=== PATIENT | male | born 1975 | race Native Hawaiian/Other Pacific Islander ===

== ENCOUNTER 2023-11-23 10:11 | Observation (INO) | payer SELFPAY ==
--- NOTE | 2023-11-23 11:07 | XR ---
EXAMINATION TYPE: XR chest 2V DATE OF EXAM: 11/23/2023 COMPARISON: NONE TECHNIQUE: PA and lateral views submitted. HISTORY: Chest pain FINDINGS: The lungs are clear and there is no pneumothorax, pleural effusion, or focal pneumonia. Heart size normal and no overt failure. Ectasia of the aorta. Osseous structures intact.. IMPRESSION: 1. No acute process.
[2023-11-23 11:17] LABS: Basophils % (A) 0 %; Eosinophils # (A) 0.1 k/uL (0-0.7); Eosinophils % (A) 1 %; HCT 47.8 % (39.0-53.0); HGB 16.5 gm/dL (13.0-17.5); Lymphocytes # (A) 1.5 k/uL (1.0-4.8); Lymphocytes % (A) 15 %; MCH 28.5 pg (25.0-35.0); MCHC 34.4 g/dL (31.0-37.0); MCV 82.8 fL (80.0-100.0); Mean Platelet Volume 7.1; Monocytes # (A) 0.3 k/uL (0-1.0); Monocytes % (A) 4 %; Neutrophils # (A) 7.6 k/uL (1.3-7.7); Neutrophils % (A) 79 %; Platelet Count 274 k/uL (150-450); RBC 5.77 m/uL (4.30-5.90); RDW 14.3 % (11.5-15.5); WBC 9.6 k/uL (3.8-10.6)
[2023-11-23 11:32] LABS: ALT 27 U/L (4-49); AST 25 U/L (17-59); African American GFR (CKD) >90 (>60 ml/min/1.73 sqM); Albumin 4.7 g/dL (3.5-5.0); Alkaline Phosphatase 72 U/L (38-126); Anion Gap 7 mmol/L; Blood Urea Nitrogen 12 mg/dL (9-20); Calcium 10.5 mg/dL (8.4-10.2); Carbon Dioxide 28 mmol/L (22-30); Chloride 103 mmol/L (98-107); Glucose 114 mg/dL (74-99); Lipase 67 U/L (23-300); Non-African American GFR(CKD) >90 (>60 ml/min/1.73 sqM); Potassium 4.5 mmol/L (3.5-5.1); Sodium 138 mmol/L (137-145); Total Bilirubin 1.1 mg/dL (0.2-1.3); Total Protein 7.4 g/dL (6.3-8.2)
[2023-11-23 11:41] LABS: NT-Pro-B-Type Natriuretic Pept 53 pg/mL
[2023-11-23] MEDS: NITROGLYCERIN SL TABS 0.4 MG TAB SUBLINGUAL STA (11:48)
[2023-11-23] MEDS: PANTOPRAZOLE 40 MG/10 ML VIAL IVP STA (11:48)
[2023-11-23 11:55] LABS: INR 0.9 (<1.2); Partial Thromboplastin Time 25.5 sec (22.0-30.0); Prothrombin Time 10.5 sec (10.0-12.5)
--- NOTE | 2023-11-23 12:35 | ED ---
Chest Pain HPI - General Chief Complaint: Chest Pain Stated Complaint: chest pain Time Seen by Provider: 11/23/23 10:17 Source: patient Mode of arrival: ambulatory Limitations: no limitations - History of Present Illness Initial Comments: 48-year-old male with past medical history of hypertension who presents emergency department reporting chest pain. States it started at 4 AM this morning. He describes it as a pressure sensation in the substernal region which has been constant. Patient does have some associated shortness of breath. He denies previous cardiac history. Does have a history of hypertension. States that he is supposed to take lisinopril 5 mg but has not been taking it because he has been unable to get into his doctor for a refill. States that he works out of town. He did not attempt to take anything for his chest pain. Denies fevers, chills or cough. Admits to nausea with 2 episodes of vomiting. No other alleviating, precipitating or modifying factors - Related Data Previous Rx's Medication Instructions Recorded lisinopriL [Zestril] 10 mg PO DAILY 30 Days #30 tab 11/24/23 Allergies Allergy/AdvReac Type Severity Reaction Status Date / Time No Known Allergies Allergy Verified 11/23/23 13:25 Review of Systems ROS Statement: Those systems with pertinent positive or pertinent negative responses have been documented in the HPI. ROS Other: All systems not noted in ROS Statement are negative. Past Medical History Past Medical History: Hypertension History of Any Multi-Drug Resistant Organisms: None Reported Past Surgical History: No Surgical Hx Reported Past Psychological History: No Psychological Hx Reported Smoking Status: Vaper Past Alcohol Use History: Occasional Past Drug Use History: None Reported General Exam Limitations: no limitations General appearance: alert, in no apparent distress Head exam: Present: atraumatic, normocephalic, normal inspection Eye exam: Present: normal appearance, PERRL, EOMI. Absent: scleral icterus, conjunctival injection, periorbital swelling ENT exam: Present: normal exam, mucous membranes moist Neck exam: Present: normal inspection. Absent: tenderness, meningismus, lymphadenopathy Respiratory exam: Present: normal lung sounds bilaterally. Absent: respiratory distress, wheezes, rales, rhonchi, stridor Cardiovascular Exam: Present: regular rate, normal rhythm, normal heart sounds. Absent: systolic murmur, diastolic murmur, rubs, gallop, clicks GI/Abdominal exam: Present: soft, normal bowel sounds. Absent: distended, tenderness, guarding, rebound, rigid Extremities exam: Present: normal inspection, full ROM, normal capillary refill. Absent: tenderness, pedal edema, joint swelling, calf tenderness Back exam: Present: normal inspection Neurological exam: Present: alert, oriented X3, CN II-XII intact Psychiatric exam: Present: normal affect, normal mood Skin exam: Present: warm, dry, intact, normal color. Absent: rash Course Vital Signs 11/23/23 11/23/23 11/23/23 10:13 11:46 12:14 Temperature 97.7 F 98.1 F Pulse Rate 81 66 60 Pulse Rate [ Pulse Oximetery ] Respiratory 20 18 18 Rate Blood Pressure 232/149 215/129 190/116 Blood Pressure [Left Arm] O2 Sat by Pulse 100 99 97 Oximetry 11/23/23 11/23/23 11/23/23 13:57 15:40 16:10 Temperature Pulse Rate 77 67 Pulse Rate [ Pulse Oximetery ] Respiratory 18 18 Rate Blood Pressure 187/121 179/112 183/122 Blood Pressure [Left Arm] O2 Sat by Pulse 98 99 Oximetry 11/23/23 11/23/23 11/23/23 18:07 19:38 20:00 Temperature 98.2 F 97.6 F Pulse Rate 83 77 Pulse Rate [ 71 Pulse Oximetery ] Respiratory 18 18 16 Rate Blood Pressure 160/88 161/107 Blood Pressure 165/111 [Left Arm] O2 Sat by Pulse 98 98 99 Oximetry Chest Pain MDM - MDM Was pt. sent in by a medical professional or institution (, PA, LINUX CONSULTANT, urgent care, hospital, or snf...) When possible be specific @ -No Did you speak to anyone other than the patient for history (EMS, parent, family, police, friend...)? What history was obtained from this source @ -No Did you review nursing and triage notes (agree or disagree)? Why? @ -I reviewed and agree with nursing and triage notes Were old charts reviewed (outside hosp., previous admission, EMS record, old EKG, old radiological studies, urgent care reports/EKG's, snf records)? Report findings @ -No old charts were reviewed Differential Diagnosis (chest pain, altered mental status, abdominal pain women, abdominal pain men, vaginal bleeding, weakness, fever, dyspnea, syncope, headache, dizziness, GI bleed, back pain, seizure, CVA, palpatations, mental health, musculoskeletal)? @ -Differential Chest Pain: Stable Angina, Unstable Angina, STEMI, NSTEMI Aortic Dissection, Pneumothorax, Musculoskeletal, Esophageal Spasm GERD, Cholecystitis, Pancreatitis, Zoster, this is not meant to be an all-inclusive list. EKG interpreted by me (3pts min.). @ -Yes and demonstrates sinus rhythm with a rate of 80. NC interval 164. QRS 114. QTc of 404. No acute ST segment elevations or depressions. Q wave in lead III X-rays interpreted by me (1pt min.). @ -Yes and demonstrates no acute process CT interpreted by me (1pt min.). @ -None done U/S interpreted by me (1pt. min.). @ -None done What testing was considered but not performed or refused? (CT, X-rays, U/S, labs)? Why? @ -None What meds were considered but not given or refused? Why? @ -None Did you discuss the management of the patient with other professionals (professionals i.e. , PA, LINUX CONSULTANT, lab, RT, psych nurse, social sciences chair, documentation clerk, teacher, driver license reviewing officer, case briefer)? Give summary @ -Spoke with Dr. Peraza Was smoking cessation discussed for >3mins.? @ -No Was critical care preformed (if so, how long)? @ -No Were there social determinants of health that impacted care today? How? (Homelessness, low income, unemployed, alcoholism, drug addiction, transportation, low edu. Level, literacy, decrease access to med. care, [facility], rehab)? @ -No Was there de-escalation of care discussed even if they declined (Discuss DNR or withdrawal of care, Hospice)? DNR status @ -No What co-morbidities impacted this encounter? (DM, HTN, Smoking, COPD, CAD, Cancer, CVA, ARF, Chemo, Hep., AIDS, mental health diagnosis, sleep apnea, morbid obesity)? @ -Hypertension Was patient admitted / discharged? Hospital course, mention meds given and route, prescriptions, significant lab abnormalities, going to OR and other per tinent info. @ -Upon arrival patient seen and evaluated in hallway 26. Thorough history and physical exam was performed. Patient is markedly hypertensive. He is given his dose of home lisinopril. Laboratory studies are conducted. Chest x-ray was performed. Patient does have several risk factors with a moderate heart score and therefore I did recommend admission. Spoke with Dr. Peraza who agreed to accept the patient. Cardiology will be placed on consult Undiagnosed new problem with uncertain prognosis? @ -No Drug Therapy requiring intensive monitoring for toxicity (Heparin, Nitro, In sulin, Cardizem)? @ -No Were any procedures done? @ -No Diagnosis/symptom? @ -Acute chest pain, accelerated hypertension Acute, or Chronic, or Acute on Chronic? @ -Acute Uncomplicated (without systemic symptoms) or Complicated (systemic symptoms)? @ -Complicated Side effects of treatment? @ -No Exacerbation, Progression, or Severe Exacerbation? @ -No Poses a threat to life or bodily function? How? (Chest pain, [place], ND, pneumonia, PE, COPD, DKA, ARF, appy, cholecystitis, CVA, Diverticulitis, Homicidal, Suicidal, threat to staff... and all critical care pts) @ -Yes as patient has significantly elevated high blood pressure with chest pain Disposition Clinical Impression: Chest pain, Accelerated hypertension Disposition: ADMITTED IP TO THIS [facility] Condition: Stable Is patient prescribed a controlled substance at d/c from ED?: No Time of Disposition: 13:14 Decision to Admit Reason: Admit from EC Decision Date: 11/23/23 Decision Time: 13:14
[2023-11-23] MEDS ORDERED: NALOXONE 0.4 MG/ML 1 ML VIAL IV PRN (13:15)
[2023-11-23] MEDS: hydrALAZINE HCL 20 MG/ML 1 ML VIAL IVP PRN ×2 (15:44→21:49)
[2023-11-24] MEDS: lisinopriL 10 MG TAB PO SCH (09:01)
[2023-11-24 10:57] LABS: Basophils # (A) 0.04 X 10*3/uL (0.00-0.10); Basophils % (A) 0.4 %; Eosinophils # (A) 0.36 X 10*3/uL (0.04-0.35); Eosinophils % (A) 3.9 %; HCT 42.4 % (39.6-50.0); HGB 14.7 g/dL (13.0-17.0); Lymphocytes # (A) 2.03 X 10*3/uL (0.90-5.00); Lymphocytes % (A) 21.8 %; MCH 27.9 pg (27.0-32.0); MCHC 34.7 g/dL (32.0-37.0); MCV 80.6 FL (80.0-97.0); Monocytes # (A) 0.81 X 10*3/uL (0.20-1.00); Monocytes % (A) 8.7 %; NRBC Per 100 WBC 0 X 10*3/uL (0.00-0.01); Neutrophils # (A) 6.05 X 10*3/uL (1.80-7.70); Neutrophils % (A) 64.8 %; Platelet Count 256 X 10*3/uL (140-440); RBC 5.26 X 10*6/uL (4.40-5.60); RDW 14.1 % (11.5-14.5); WBC 9.33 X 10*3/uL (4.50-10.00)
[2023-11-24 11:17] LABS: BUN/Creat Ratio 12.44 Ratio (12.00-20.00); Blood Urea Nitrogen 11.2 mg/dL (9.0-27.0); Carbon Dioxide 22.8 mmol/L (21.6-31.8); Chloride 105 mmol/L (96-109); Glucose 110 mg/dL (70-110); Potassium 4.1 mmol/L (3.5-5.5); Sodium 138 mmol/L (135-145)
--- NOTE | 2023-11-24 12:37 | P.CRDCN ---
History of Present Illness History of present illness: HISTORY OF PRESENT ILLNESS: This is a 48-year-old male with a past medical history significant for hypertension. Patient does not follow with a industrial hygenist. We have been asked to see the patient in consultation for chest pain and hypertension. Patient examined at the bedside. Patient states two nights ago he had chest pain that wouldnt go away. He thought initially it was GERD but came to the hospital when it didnt resolve. He states the pain resolved around 7pm last night. Patient's blood pressures were extremity elevated upon admission to the hospital with a reading of 232/149. The patient states he takes lisinopril on an outpatient basis however he has not been taking this as he ran out of his medication. Most recent blood pressure 126/89. Reports daily vaping. Reports occasional alcohol use. Denies drug use. DIAGNOSTICS: - EKG reveals sinus mechanism with no signs of acute ischemia. - Chest xray negative for acute process - Laboratory data: WBC 9.6. Hemoglobin 16.5. Platelet count 274. Sodium 138. Potassium 4.5. BUN 12. Creatinine 0.83. Magnesium 2.0 troponin negative x 3. proBNP 53. - Current home cardiac medications include none. - No previous echocardiogram, stress test, or cardiac catheterization available in EMR for review REVIEW OF SYSTEMS: At the time of my exam: CONSTITUTIONAL: Denies fever or chills. HEENT: Denies blurred vision, vision changes, or eye pain. Denies hemoptysis CARDIOVASCULAR: Denies chest pain. Denies orthopnea. Denies PND. Denies palpitations RESPIRATORY: Denies shortness of breath. GASTROINTESTINAL: Denies abdominal pain. Denies nausea or vomiting. HEMATOLOGIC: Denies bleeding disorders. GENITOURINARY: Denies any blood in urine. SKIN: Denies pruitis. Denies rash. PHYSICAL EXAM: VITAL SIGNS: Reviewed. GENERAL: Well-developed in no acute distress. HEENT: Head is normocephalic. Pupils are equal, round. Sclerae anicteric. Mucous membranes of the mouth are moist. Neck supple. No JVD or thyromegaly LUNGS: Respirations even and unlabored. Lungs essentially clear to auscultation bilaterally. HEART: Regular rate and rhythm. S1 and S2 heard. ABDOMEN: Soft. Nondistended. Nontender. EXTREMITIES: Normal range of motion. No clubbing or cyanosis. Peripheral pulses intact. No lower extremity edema NEUROLOGIC: Awake and alert. Oriented x 3. ASSESSMENT: Hypertensive emergency Chest pain, troponin negative x 3 History of hypertension Nicotine dependence, patient vapes PLAN: An acute coronary event has been ruled out Obtain 2D echo to assess cardiac structure and function Resume lisinopril. Increase dosage to 10 mg daily Continue to monitor blood pressure Patient to undergo stress echo today Further recommendations pending patient course Nurse practitioner note has been reviewed by physician. Signing provider agrees with the documented findings, assessment, and plan of care documented by REMOTE INPATIENT CODER as a scribe. Past Medical History Past Medical History: Hypertension History of Any Multi-Drug Resistant Organisms: None Reported Past Surgical History: No Surgical Hx Reported Past Psychological History: No Psychological Hx Reported Smoking Status: Vaper Past Alcohol Use History: Occasional Past Drug Use History: None Reported Medications and Allergies Home Medications Medication Instructions Recorded Confirmed Type lisinopriL [Zestril] 5 mg PO DAILY 11/24/23 11/24/23 History Allergies Allergy/AdvReac Type Severity Reaction Status Date / Time No Known Allergies Allergy Verified 11/23/23 13:25 Physical Exam Vitals: Vital Signs Temp Pulse Pulse Resp BP BP Pulse Ox 11/24/23 03:46 98.0 F 80 16 126/89 97 11/23/23 22:20 90 162/84 98 11/23/23 20:00 97.6 F 71 16 165/111 99 11/23/23 19:38 98.2 F 77 18 161/107 98 11/23/23 18:07 83 18 160/88 98 11/23/23 16:10 183/122 11/23/23 15:40 67 18 179/112 99 11/23/23 13:57 77 18 187/121 98 11/23/23 12:14 60 18 190/116 97 11/23/23 11:46 98.1 F 66 18 215/129 99 11/23/23 10:13 97.7 F 81 20 232/149 100 Results 11/23/23 10:54 11/23/23 10:54 Cardiac Enzymes 11/23/23 11/23/23 11/23/23 Range/Units 10:54 10:54 14:53 AST 25 (17-59) U/L Troponin I <0.012 <0.012 (0.000-0.034) ng/mL 11/23/23 Range/Units 18:16 AST (17-59) U/L Troponin I <0.012 (0.000-0.034) ng/mL Coagulation 11/23/23 Range/Units 10:54 PT 10.5 (10.0-12.5) sec APTT 25.5 (22.0-30.0) sec CBC 11/23/23 Range/Units 10:54 WBC 9.6 (3.8-10.6) k/uL RBC 5.77 (4.30-5.90) m/uL Hgb 16.5 (13.0-17.5) gm/dL Hct 47.8 (39.0-53.0) % Plt Count 274 (150-450) k/uL Comprehensive Metabolic Panel 11/23/23 Range/Units 10:54 Sodium 138 (137-145) mmol/L Potassium 4.5 (3.5-5.1) mmol/L Chloride 103 (98-107) mmol/L Carbon Dioxide 28 (22-30) mmol/L BUN 12 (9-20) mg/dL Creatinine 0.83 (0.66-1.25) mg/dL Glucose 114 H (74-99) mg/dL Calcium 10.5 H (8.4-10.2) mg/dL AST 25 (17-59) U/L ALT 27 (4-49) U/L Alkaline Phosphatase 72 (38-126) U/L Total Protein 7.4 (6.3-8.2) g/dL Albumin 4.7 (3.5-5.0) g/dL Current Medications Generic Name Dose Route Start Last Admin Trade Name Wuq PRN Reason Stop Dose Admin Hydralazine HCl 10 mg 11/23/23 21:22 11/23/23 21:49 Hydralazine Hcl 20 Mg/Ml 1 Ml Vial IVP 10 mg Q6HR PRN Administration Blood Pressure - High Naloxone HCl 0.2 mg 11/23/23 13:15 Naloxone 0.4 Mg/Ml 1 Ml Vial IV Q2M PRN Opioid Reversal 11/23/23 10:54 11/23/23 10:54
--- NOTE | 2023-11-24 13:32 | CA ---
Stress Echo Report Alden Meier Age: 48 Gender: M : 1975 Exam Date: 11/24/2023 12:29 Exam Location: [facility] Ht (in): 70 Wt (lb): 240 Ordering Physician: Maryan Salazar Referring Physician: [id number] Felt Hat Mellowing Machine Operator: Cindy Milian RDCS Technologist Procedure CPT: Indication: CP ICD-9 Codes: Rhythm: Patient History: CHEST PAIN, HTN, FAMILY HX OF HEART DISEASE, CURRENT SMOKER Cardiac Medications: Medications in past 24 hours: Contrast: N/A Stress Results Protocol: Ata Total dose(mL): Exercise Duration (min:sec): 9:[address] Depression (mm): Angina Score: Connors Score: METS: 10.5 Resting HR: 91 Resting BP: 155 / 96 Peak HR: 151 Peak BP: 186 / 100 Max Predicted HR: 173 87 % Max Predicted HR Target HR: 147 Double Product: [id number] Stress Summary: BP Response: Reason for Termination: MAX EXERTION/TARGET HR Cardiac Symptoms: NO SYMPTOMS ECG Analysis Resting ECG: Stress ECG: Arrhythmia: Echo Analysis Resting Echo: Peak Echo Analysis: MEASUREMENTS (Male/Female) Normal Values CONCLUSIONS Patient underwent exercise stress echo with a Ata protocol treadmill stress test. Patient exercised into Stage 3 for a total of 9 minutes reaching a total of 10.5 METS. Patient's maximum heart rate was 151 which represented 87% age-predicted maximum heart rate. Stress EKG portion: At baseline patient's EKG showed normal sinus rhythm, normal axis, no significant ST-T wave abnormalities. At peak exercise, EKG showed no significant change from baseline. Stress echo portion: 2-D echocardiogram was performed in the parasternal long, personal short, apical 2 and apical four-chamber views at rest, peak exercise and in recovery. At baseline, echocardiogram showed left ventricular ejection fraction []% without wall motion abnormalities. With peak exercise, echocardiogram shows improvement in left ventricular ejection fraction, increase contractility, decrease in left ventricular end systolic dimension without wall motion abnormalities consistent with a normal response to exercise. Conclusions: 1. Normal EKG and echo response to exercise without evidence of inducible ischemia. 2. Good exercise capacity. Dr. Gato Gonzalez DO (Electronically Signed) Final Date: 24 November 2023 13:31
[2023-11-24 14:42] VITALS: BP 128/78; PULSE 85; RESP 16; TEMP 97.7
--- NOTE | 2023-11-24 15:29 | P.HPIM ---
History of Present Illness H&P Date: 11/23/23 Alden Meier, is a 48-year-old male who presented to [facility] emergency room with a chief complaint of chest pain He was evaluated in the emergency room vital examination on presentation revealed a temperature of 97.7 pulse 81 respiration 20 blood pressure 232/149 pulse ox 100% on room air Laboratory data reveals a white blood count of 9.6 hemoglobin 16.5 platelet count 274 BUN 12 creatinine 0.83 troponin level 0.012 Testing in the emergency room revealed chest x-ray revealed no acute process, EKG revealed sinus rhythm with moderate intraventricular conduction delay Patient was admitted to medical floor for further evaluation and treatment Past Medical History Past Medical History: Hypertension History of Any Multi-Drug Resistant Organisms: None Reported Past Surgical History: No Surgical Hx Reported Past Psychological History: No Psychological Hx Reported Smoking Status: Vaper Past Alcohol Use History: Occasional Past Drug Use History: None Reported Medications and Allergies Home Medications Medication Instructions Recorded Confirmed Type lisinopriL [Zestril] 10 mg PO DAILY 30 Days #30 tab 11/24/23 Rx Allergies Allergy/AdvReac Type Severity Reaction Status Date / Time No Known Allergies Allergy Verified 11/23/23 13:25 Physical Exam Vitals: Vital Signs Temp Pulse Resp BP Pulse Ox 11/23/23 12:14 60 18 190/116 97 11/23/23 11:46 98.1 F 66 18 215/129 99 11/23/23 10:13 97.7 F 81 20 232/149 100 Intake and Output 11/22/23 11/23/23 11/23/23 22:59 06:59 14:59 Other: Weight 108.862 kg In general patient is alert and oriented x 3 in no distress HEENT head normocephalic and atraumatic Neck is supple no JVD no goiter no lymphadenopathy no carotid bruit Chest examination is clear to auscultation no crackles no wheezing Cardiac exam reveals regular heart sounds S1 and S2 no gallops no murmurs Abdomen is soft nontender no organomegaly with normal bowel sounds Extremity exam reveals no edema no cyanosis or clubbing Neurological examination reveals no gross focal deficits Results CBC & Chem 7: 11/24/23 06:52 11/24/23 06:52 Labs: Abnormal Lab Results - Last 24 Hours (Table) 11/23/23 Range/Units 10:54 Glucose 114 H (74-99) mg/dL Calcium 10.5 H (8.4-10.2) mg/dL Assessment and Plan Plan: Acute chest pain Hypertensive emergency, on presentation Underlying history of hypertension At this time patient is admitted to telemetry floor Home medications reviewed and reordered IV hydralazine added as needed Cardiology consultation requested Serial EKG and cardiac enzymes ordered Will follow closely
--- NOTE | 2023-11-24 15:32 | P.DS ---
Providers Date of admission: 11/23/23 13:16 Expected date of discharge: 11/24/23 Attending physician: Rl Peraza Consults: 11/23/23 13:15 Consult Physician Urgent Consulting Provider: [facility] Consult Reason/Comments: acute chest pain, accelerated htn Do you want consulting provider notified?: Yes Primary care physician: Rl Karmen [facility] Course: Diagnosis on discharge: Acute chest pain Hypertensive emergency, on presentation Underlying history of hypertension Hospital course: Alden Meier, is a 48-year-old male who presented to [facility] emergency room with a chief complaint of chest pain He was evaluated in the emergency room vital examination on presentation revealed a temperature of 97.7 pulse 81 respiration 20 blood pressure 232/149 pulse ox 100% on room air Laboratory data reveals a white blood count of 9.6 hemoglobin 16.5 platelet count 274 BUN 12 creatinine 0.83 troponin level 0.012 Testing in the emergency room revealed chest x-ray revealed no acute process, EKG revealed sinus rhythm with moderate intraventricular conduction delay Patient was admitted to medical floor for further evaluation and treatment On 11/24/2023 patient was seen and examined on the medical floor he is alert and oriented x 3 in no apparent distress serial EKG and cardiac enzymes did not reveal any acute abnormality patient was evaluated by cardiology, he underwent stress echo test which was within normal limits. He was cleared by cardiology for discharge. Patient was discharged to home today he will be followed in the office within 1 week. During this admission lisinopril dose was increased from 5 to 10 mg blood pressure was well-controlled at the time of discharge Patient Condition at Discharge: Stable Plan - Discharge Summary New Discharge Prescriptions: New lisinopriL [Zestril] 10 mg PO DAILY 30 Days #30 tab Discontinued lisinopriL [Zestril] 5 mg PO DAILY Discharge Medication List lisinopriL [Zestril] 10 mg PO DAILY 30 Days #30 tab 11/24/23 [Rx] Follow up Appointment(s)/Referral(s): None,Stated [REFERRING] - 1-2 days
--- NOTE | 2023-11-25 10:32 | CA ---
Transthoracic Echo Report Name: Alden Meier Age: 48 Gender: M : 1975 Exam Date: 11/24/2023 12:50 Exam Location: [facility] Ht (in): 70 Wt (lb): 240 Ordering Physician: Divina Smith DO Attending/Referring Phys: [id number], Sarah [employer]ter Cindy Milian, BERTIN Procedure CPT: Indications: Chest Pain Cardiac Hx: Technical Quality: Good Contrast 1: Total Dose (mL): Contrast 2: Total Dose (mL): MEASUREMENTS (Male / Female) Normal Values 2D ECHO LV Diastolic Diameter PLAX 4.4 cm 4.2 - 5.9 / 3.9 - 5.3 cm LV Systolic Diameter PLAX 2.8 cm IVS Diastolic Thickness 1.0 cm 0.6 - 1.0 / 0.6 - 0.9 cm LVPW Diastolic Thickness 1.3 cm 0.6 - 1.0 / 0.6 - 0.9 cm LV Relative Wall Thickness 0.5 LVOT Diameter 2.3 cm Aortic Root Diameter 3.9 cm LV Diastolic Volume MOD BP 142.4 cm??? 67 - 155 / 56 - 104 cm??? LV Systolic Volume MOD BP 63.9 cm??? 22 - 58 / 19 - 49 cm??? LV Ejection Fraction MOD BP 55.2 % >= 55 % LV Cardiac Index MOD BP 2933.1 cm???/min???m??? LV Diastolic Volume MOD 4C 131.0 cm??? LV Systolic Volume MOD 4C 60.4 cm??? LV Ejection Fraction MOD 4C 53.9 % LV Cardiac Index MOD 4C 2636.2 cm???/min???m??? LV Diastolic Length 4C 8.6 cm LV Systolic Length 4C 7.5 cm LV Diastolic Volume MOD 2C 147.6 cm??? LV Systolic Volume MOD 2C 63.2 cm??? LV Ejection Fraction MOD 2C 57.2 % LV Cardiac Index MOD 2C 3152.0 cm???/min???m??? LV Diastolic Length 2C 9.1 cm LV Systolic Length 2C 8.0 cm Ascending Aorta Diameter 4.0 cm DOPPLER AV Peak Velocity 158.4 cm/s AV Peak Gradient 10.0 mmHg AV Mean Velocity 106.9 cm/s AV Mean Gradient 5.2 mmHg AV Velocity Time Integral 24.9 cm LVOT Peak Velocity 111.2 cm/s LVOT Peak Gradient 4.9 mmHg LVOT Velocity Time Integral 20.8 cm LVOT Stroke Volume 87.9 cm??? LVOT Stroke Volume Index 39.0 ml/m??? LVOT Cardiac Index 3283.1 cm???/min???m??? AV Area Cont Eq vti 3.5 cm??? AV Area Cont Eq pk 3.0 cm??? Mitral E Point Velocity 62.5 cm/s Mitral A Point Velocity 60.2 cm/s Mitral E to A Ratio 1.0 MV Deceleration Time 184.7 ms MV E' Velocity 6.4 cm/s Mitral E to MV E' Ratio 9.8 PV Peak Velocity 110.3 cm/s PV Peak Gradient 4.9 mmHg FINDINGS Left Ventricle Left ventricular ejection fraction is estimated at 55-60 %. Mildly increased left ventricular systolic volume. Left ventricular wall thickness normal. No obvious regional wall motion abnormalities. Right Ventricle Normal right ventricular size and function. Unable to estimate the right ventricular systolic pressure. Right Atrium Normal right atrial size. Left Atrium Normal left atrial size. Mitral Valve Structurally normal mitral valve. No evidence for mitral valve prolapse. No mitral stenosis. Trace mitral regurgitation. Aortic Valve Trileaflet aortic valve. No aortic valve stenosis or regurgitation. Tricuspid Valve Structurally normal tricuspid valve. No tricuspid stenosis. Trace tricuspid regurgitation. Pulmonic Valve Structurally normal pulmonic valve. No pulmonic stenosis. Trace pulmonic regurgitation. Pericardium No pericardial effusion. Aorta Aortic annulus normal. Ascending aorta borderline enlarged. CONCLUSIONS Left ventricular ejection fraction 55-60% Trace mitral regurgitation Trace tricuspid regurgitation No pericardial effusion Previewed by: Dr. Gato Gonzalez DO (Electronically Signed) Final Date: 25 November 2023 10:31
== END 2023-11-24 15:45 | disposition home or self-care (01) ==
LOC: EC 10:11 → 6NMEDSUR 13:16
PROVIDERS: ADMIT Internal Medicine; ATTEND Internal Medicine
DX: R07.89 Other chest pain (principal); I16.1 Hypertensive emergency; T46.4X6A Underdosing of angiotensin-converting-enzyme inhibitors, initial encounter; Z91.148 Patient's other noncompliance with medication regimen for other reason; I10 Essential (primary) hypertension; I45.89 Other specified conduction disorders; F17.290 Nicotine dependence, other tobacco product, uncomplicated; Z79.899 Other long term (current) drug therapy
CPT/HCPCS: 36415; 71046; 80048; 80053; 83690; 83735; 83880; 84484; 85025; 85610; 85730; 93005; 93306; 93351; 96374; 96375; 96376; 99285